=== PATIENT | male | born 1990 | race African-American/Black ===

== ENCOUNTER 2020-04-15 10:40 | Inpatient (IN) | payer OTHER ==
--- NOTE | 2020-04-15 11:11 | BHS.RME ---
Substance Use & Tx History - Substance Use History Heroin Substance amount: 1 bundle Frequency of use: Daily Substance route: Inhalation (ex: sniffing or snorting) Date of Last Use: 04/15/20 Alcohol Substance amount: 1 pints Frequency of use: Less than 3 times per week Substance route: Oral Date of Last Use: 04/13/20 Nicotine Substance amount: 1/2 pack Frequency of use: Daily Substance route: Smoking Date of Last Use: 04/15/20 Physical/Psych/Mental Status - Behavior General Behavior: Decreased activity Eye Contact: Normal - Cooperativeness Cooperativeness: Cooperative - Thinking Thought Processes: Tight, Logical, Goal Directed - Physical Health Problems Is patient presently having any pain?: No Does patient presently have any injuries (include location): No Does patient currently have a fever: No Is patient : No COWS - Scale Resting Pulse: 1= [place] 81-100 Sweatin= No chills or Flushing Restless Observation: 1= Difficult to Sit Still Pupil Size: 1= Pupils >than Normal Bone or Joint Aches: 2= Severe Diffuse Aches Runny Nose/ Eye Tearin= None GI Upset > 30mins: 0= None Tremor Observation: 0= None Yawning Observation: 1= 1-2x During Session Anxiety or Irritability: 1=Feels Anxious/Irritable Goose Flesh Skin: 3=Piloerection COWS Score: 10
--- NOTE | 2020-04-15 12:01 | HP ---
COWS - Scale Resting Pulse: 1= [place] 81-100 Sweatin= No chills or Flushing Restless Observation: 1= Difficult to Sit Still Pupil Size: 1= Pupils >than Normal Bone or Joint Aches: 2= Severe Diffuse Aches Runny Nose/ Eye Tearin= None GI Upset > 30mins: 0= None Tremor Observation: 0= None Yawning Observation: 1= 1-2x During Session Anxiety or Irritability: 1=Feels Anxious/Irritable Goose Flesh Skin: 3=Piloerection COWS Score: 10 CIWA Score - Admission Criteria OASAS Guidelines: Admission for Medically Managed Detox: Requires at least one of the followin. CIWA greater than 12 2. Seizures within the past 24 hours 3. Delirium tremens within the past 24 hours 4. Hallucinations within the past 24 hours 5. Acute intervention needed for co occurring medical disorder 6. Acute intervention needed for co occurring psychiatric disorder 7. Severe withdrawal that cannot be handled at a lower level of care (continued vomiting, continued diarrhea, abnormal vital signs) requiring intravenous medication and/or fluids 8. Admitting History and Physical - Admission History of Present Illness: Chief Complaint: " I want to get my life straight and start working" History of Present Illness: 24 year old male with history of alcohol use disorder and opioid dependence with withdrawal, nicotine dependence He has never been to treatment here. Alcohol: 1 pint vodka 3x/wk started drinking at age 18 and last used 04/13/20 Heroin: 1 bundle IN, started at age 28 and last used 04/15/20 at 9AM. Overdosed 2 months ago and has a narcan kit. Nicotine: 1/2 pack daily, started at age 18 PMH: None Psurg: None Psych: None Patient is homeless and staying in the [facility] No legal problems pending. He meets criteria for heroin detox as he is currently using and has had 4-5 overdoses, last one 2 months ago. History Source: Patient Limitations to Obtaining History: No Limitations - Past Surgical History Past Surgical History: Yes: None - Alcohol/Substance Use Hx Alcohol Use: Yes Number of Drinks Daily: 10 History of Substance Use: reports: Heroin - Social History Usual Living Arrangement: Yes: Alone Do you think of yourself as: Straight/Heterosexual ADL: Independent Occupation: unemployed History of Recent Travel: No Admission ROS BHS - HPI Exam Limitations: No Limitations - Ebola screening Have you traveled outside of the country in the last 21 days: No Have you had contact with anyone from an Ebola affected area: No Have you been sick,other than usual withdrawal symptoms: No Do you have a fever: No - Review of Systems Constitutional: Diaphoresis EENT: reports: No Symptoms Reported Respiratory: reports: No Symptoms reported Cardiac: reports: No Symptoms Reported GI: reports: No Symptoms Reported : reports: No Symptoms Reported Musculoskeletal: reports: No Symptoms Reported Integumentary: reports: No Symptoms Reported Neuro: reports: No Symptoms reported Endocrine: reports: No Symptoms Reported Hematology: reports: No Symptoms Reported Psychiatric: reports: Judgement Intact, Mood/Affect Appropiate, Orientated x3, Agitated, Anxious Other Systems: Reviewed and Negative Patient History - Patient Medical History Hx Anemia: No - Patient Surgical History Past Surgical History: No - PPD History Previous Implant?: Yes Documented Results: Negative w/o proof Implanted On Prior R Admission?: No PPD to be Administered?: Yes - Smoking Cessation Smoking history: Current every day smoker Have you smoked in the past 12 months: Yes Aproximately how many cigarettes per day: 10 Hx Chewing Tobacco Use: No Initiated information on smoking cessation: Yes 'Breaking Loose' booklet given: 04/15/20 - Substances abused Alcohol Substance route: Oral Frequency: 1-3 times last 30 days Amount used: 1 pint vodka Age of first use: 18 Date of last use: 04/13/20 Heroin Substance route: Inhalation Frequency: Daily Amount used: 1 bundle Age of first use: 28 Date of last use: 04/15/[address] [facility] - Physical General Appearance: Yes: No Apparent Distress, Disheveled, Irritable, Sweating, Anxious HEENTM: Yes: EOMI, Hearing grossly Normal, Normal ENT Inspection, Normocephalic, Normal Voice, RICCI, Pharynx Normal, Tm's normal Respiratory: Yes: Chest Non-Tender, Lungs Clear, Normal Breath Sounds, No Respiratory Distress, No Accessory Muscle Use Neck: Yes: No masses,lesions,Nodules, Supple, Trachea in good position Breast: Yes: Within Normal Limits Cardiology: Yes: Regular Rhythm, Regular Rate, S1, S2 Abdominal: Yes: Normal Bowel Sounds, Non Tender, Flat, Soft Genitourinary: Yes: Within Normal Limits Back: Yes: Normal Inspection Musculoskeletal: Yes: full range of Motion, Gait Steady, Pelvis Stable Extremities: Yes: Normal Capillary Refill, Normal Inspection, Normal Range of Motion, Non-Tender Neurological: Yes: distribution center manager II-XII NML intact, Fully Oriented, Alert, Motor Strength 5/5, Normal Mood/Affect, Normal Response Integumentary: Yes: Normal Color, Dry, Warm Lymphatic: Yes: Within Normal Limits - Diagnostic (1) Opioid dependence with withdrawal Current Visit: Yes Status: Acute (2) Nicotine dependence Current Visit: Yes Status: Acute (3) Homeless Current Visit: Yes Status: Acute Cleared for Admission S - Detox or Rehab [facility] Level of Care: Medically Managed Detox Regimen/Protocol: Methadone Claeared for Rehab Admission: No Screened but not Admitted - Documentation of Visit Screened but not Admitted: No Breathalyzer - Breathalyzer Breathalyzer: 0 Urine Drug Screen - Test Device Lot number: [id number] Expiration date: 06/22/21 - Control Is test valid?: Yes - Results Drug screen NEGATIVE: No Urine drug screen results: FEN-Fentanyl, MOP-Opiates Inpatient Rehab Admission - Rehab Decision to Admit Inpatient rehab admission?: No
[2020-04-15] MEDS ORDERED: METHADONE HCL 10 MG TABLET (FOR DETOX USE ONLY) PO ONE (12:09)
[2020-04-15] MEDS ORDERED: IBUPROFEN 400 MG TABLET (FP) PO PRN (12:09)
[2020-04-15] MEDS ORDERED: BISMUTH SUBSALICYLATE 262 MG/15 ML BTL PO PRN (12:09)
[2020-04-15] MEDS ORDERED: MAGNESIUM HYDROX 2400MG/30ML ORAL SUSPENSION 30 ML CUP PO PRN (12:09)
[2020-04-15] MEDS ORDERED: ACETAMINOPHEN 325 MG TABLET (FP) PO PRN ×2 (12:09)
[2020-04-15] MEDS ORDERED: MENTHOL/PHENOL 1 EACH UD MM PRN (12:09)
[2020-04-15] MEDS ORDERED: MAG HYDROX/AL HYDROX/SIMETH 30 ML UNIT-DOSE CUP PO PRN (12:09)
[2020-04-15] MEDS ORDERED: cloNIDine HCL 0.1 MG TABLET PO PRN (12:09)
[2020-04-15] MEDS ORDERED: MAGNESIUM CITRATE 300 ML BOTTLE PO PRN (12:09)
[2020-04-15] MEDS ORDERED: NICOTINE POLACRILEX 2 MG GUM BUC PRN (12:09)
[2020-04-15] MEDS ORDERED: ONDANSETRON *ODT* 4 MG TABLET SL ONE (12:09)
--- NOTE | 2020-04-15 13:35 | EKG ---
Test Reason : Blood Pressure : / mmHG Vent. Rate : 070 BPM Atrial Rate : 070 BPM P-R Int : 180 ms QRS Dur : 084 ms QT Int : 394 ms P-R-T Axes : 045 087 057 degrees QTc Int : 425 ms NORMAL SINUS RHYTHM MODERATE VOLTAGE CRITERIA FOR LVH, MAY BE NORMAL VARIANT BORDERLINE ECG NO PREVIOUS ECGS AVAILABLE Confirmed by MD Levin Edward ([id number]) on 04/15/2020 1:35:21 PM Referred By: Confirmed By:Amilcar Levin MD
[2020-04-15] MEDS ORDERED: TUBERCULIN PPD 5 TU/0.1ML VIAL ID ONE (13:37)
[2020-04-15] MEDS: hydrOXYzine PAMOATE 25 MG CAPSULE (FP) PO SCH ×3 (13:59→22:11)
[2020-04-15] MEDS: PRENATAL VITAMINS W/ FOLIC ACID TABLET (FP) PO SCH (14:00)
[2020-04-15] MEDS: NICOTINE 7 MG/24 HOURS TOPICAL PATCH TD SCH (14:09)
[2020-04-15 18:05] LABS: HEMATOCRIT 38.7 % (35.4-49); MCH 21.8 pg (25.7-33.7); MCHC 30.9 g/dl (32.0-35.9); MEAN CELL VOLUME 70.4 fl (80-96); MEAN PLT VOLUME 10.1 fl (7.5-11.1); PLATELET COUNT 296 K/MM3 (134-434); RDW 14.4 % (11.9-15.9); WHITE BLOOD COUNT 7.6 K/mm3 (4.0-10.0)
[2020-04-15 18:11] LABS: BILIRUBIN,TOTAL 0.4 mg/dL (0.2-1); BLOOD UREA NITROGEN 11.5 mg/dL (7-18); CALCIUM 9.3 mg/dL (8.5-10.1); CREATININE 0.9 mg/dL (0.55-1.3); POTASSIUM 4.6 mmol/L (3.5-5.1); TOT PROT 8.3 g/dl (6.4-8.2)
[2020-04-15] MEDS: MELATONIN 5 MG TABLETS PO SCH (22:11)
[2020-04-15] MEDS: THIAMINE HCL 100 MG TABLET (FP) PO SCH (22:11)
[2020-04-16] MEDS: hydrOXYzine PAMOATE 25 MG CAPSULE (FP) PO SCH ×5 (06:36→22:20)
[2020-04-16] MEDS ORDERED: METHADONE HCL 10 MG TABLET (FOR DETOX USE ONLY) ONE (08:36)
[2020-04-16] MEDS ORDERED: METHADONE HCL 5 MG TABLET (FOR DETOX USE ONLY) ONE (08:37)
[2020-04-16] MEDS ORDERED: METHADONE (DETOX) 20 MG, METHADONE (DETOX) 5 MG PO ONE (10:00)
[2020-04-16] MEDS: PRENATAL VITAMINS W/ FOLIC ACID TABLET (FP) PO SCH (10:10)
[2020-04-16] MEDS: NICOTINE 7 MG/24 HOURS TOPICAL PATCH TD SCH (10:10)
--- NOTE | 2020-04-16 12:04 | PN ---
BHS COWS - Scale Resting Pulse: 0= [place] 80 or Below Sweatin= Chills/Flushing Restless Observation: 0= Sits Still Pupil Size: 0= Normal to Room Light Bone or Joint Aches: 2= Severe Diffuse Aches Runny Nose/ Eye Tearin= None GI Upset > 30mins: 0= None Tremor Observation of Outstretched Hands: 2= Slight Tremor Visible Yawning Observation: 0= None Anxiety or Irritability: 1=Feels Anxious/Irritable Goose Flesh Skin: 0=Smooth Skin COWS Score: 6 BHS Progress Note (SOAP) Subjective: Pt is a 30 y/o male with a hx of MIRZA-heroin, and some alcohol admitted to detox. Objective: 04/16/20 12:39 Vital Signs 04/16/20 04/16/20 06:23 09:04 Temperature 97.8 F 98.2 F Pulse Rate 63 75 Respiratory 18 18 Rate Blood Pressure 148/79 129/85 O2 Sat by Pulse 97 98 Oximetry (%) Laboratory Tests 04/15/20 04/15/20 04/15/20 12:00 12:00 12:00 WBC 7.6 RBC 5.50 Hgb 12.0 Hct 38.7 MCV 70.4 L MCH 21.8 L MCHC 30.9 L RDW 14.4 Plt Count 296 MPV 10.1 Sodium 141 Potassium 4.6 Chloride 106 Carbon Dioxide 30 Anion Gap 5 L BUN 11.5 Creatinine 0.9 Est GFR (CKD-EPI)AfAm 132.37 Est GFR (CKD-EPI)NonAf 114.21 Random Glucose 75 Calcium 9.3 Total Bilirubin 0.4 AST 19 ALT 33 Alkaline Phosphatase 84 Total Protein 8.3 H Albumin 4.0 Syphilis Serology Non-reactive COVID-19 (CASANDRA) HIV Ag/Ab Combo Qual 04/15/20 04/15/20 12:00 12:00 WBC RBC Hgb Hct MCV MCH MCHC RDW Plt Count MPV Sodium Potassium Chloride Carbon Dioxide Anion Gap BUN Creatinine Est GFR (CKD-EPI)AfAm Est GFR (CKD-EPI)NonAf Random Glucose Calcium Total Bilirubin AST ALT Alkaline Phosphatase Total Protein Albumin Syphilis Serology COVID-19 (CASANDRA) Not detected HIV Ag/Ab Combo Qual Negative covid-19 not detected Assessment: 04/16/20 12:45 withdrawal sx Plan: cont detox increase po fluids maintain safety
[2020-04-16] MEDS: MELATONIN 5 MG TABLETS PO SCH (22:19)
[2020-04-16] MEDS: THIAMINE HCL 100 MG TABLET (FP) PO SCH (22:19)
[2020-04-16] MEDS: METHOCARBAMOL 500 MG TABLET PO PRN (22:20)
[2020-04-16 22:48] LABS: PH,URINE 6.5 (5.0-8.0); URINE APPEARANCE CLEAR; URINE BILIRUBIN NEGATIVE (NEGATIVE); URINE COLOR YELLOW; URINE GLUCOSE (UA) NEGATIVE (NEGATIVE); URINE KETONE TRACE (NEGATIVE); URINE LEUK ESTERASE NEGATIVE (NEGATIVE); URINE NITRITE NEGATIVE (NEGATIVE); URINE PROTEIN NEGATIVE (NEGATIVE)
[2020-04-17] MEDS: hydrOXYzine PAMOATE 25 MG CAPSULE (FP) PO SCH ×5 (07:11→22:10)
[2020-04-17] MEDS ORDERED: METHADONE HCL 10 MG TABLET (FOR DETOX USE ONLY) PO ONE (10:00)
[2020-04-17] MEDS: NICOTINE 7 MG/24 HOURS TOPICAL PATCH TD SCH (10:05)
[2020-04-17] MEDS: PRENATAL VITAMINS W/ FOLIC ACID TABLET (FP) PO SCH (10:05)
--- NOTE | 2020-04-17 10:10 | PN ---
BHS COWS - Scale Resting Pulse: 0= [place] 80 or Below Sweatin= Chills/Flushing Restless Observation: 0= Sits Still Pupil Size: 0= Normal to Room Light Bone or Joint Aches: 2= Severe Diffuse Aches Runny Nose/ Eye Tearin= None GI Upset > 30mins: 0= None Tremor Observation of Outstretched Hands: 1= Tremor [place], Not Seen Yawning Observation: 0= None Anxiety or Irritability: 1=Feels Anxious/Irritable Goose Flesh Skin: 0=Smooth Skin COWS Score: 5 BHS Progress Note (SOAP) Subjective: slight anxiety sweats reports detox proceeding well Objective: 04/18/20 16:46 Vital Signs (72 hours) 04/17/20 04/17/20 04/17/20 05:00 06:40 09:10 Temperature 97.8 F 98.2 F Pulse Rate 66 79 Respiratory 16 18 Rate Blood Pressure 127/83 134/86 O2 Sat by Pulse 98 98 Oximetry (%) 04/17/20 13:02 Temperature 98.4 F Pulse Rate 55 L Respiratory 16 Rate Blood Pressure 128/88 O2 Sat by Pulse 98 Oximetry (%) Laboratory Tests 04/15/20 04/15/20 04/15/20 12:00 12:00 12:00 WBC 7.6 RBC 5.50 Hgb 12.0 Hct 38.7 MCV 70.4 L MCH 21.8 L MCHC 30.9 L RDW 14.4 Plt Count 296 MPV 10.1 Sodium 141 Potassium 4.6 Chloride 106 Carbon Dioxide 30 Anion Gap 5 L BUN 11.5 Creatinine 0.9 Est GFR (CKD-EPI)AfAm 132.37 Est GFR (CKD-EPI)NonAf 114.21 Random Glucose 75 Calcium 9.3 Total Bilirubin 0.4 AST 19 ALT 33 Alkaline Phosphatase 84 Total Protein 8.3 H Albumin 4.0 Urine Color Urine Appearance Urine pH Ur Specific [place] Urine Protein Urine Glucose (UA) Urine Ketones Urine Blood Urine Nitrite Urine Bilirubin Urine Urobilinogen Ur Leukocyte Esterase Syphilis Serology Non-reactive COVID-19 (CASANDRA) HIV Ag/Ab Combo Qual 04/15/20 04/15/20 04/16/20 12:00 12:00 22:40 WBC RBC Hgb Hct MCV MCH MCHC RDW Plt Count MPV Sodium Potassium Chloride Carbon Dioxide Anion Gap BUN Creatinine Est GFR (CKD-EPI)AfAm Est GFR (CKD-EPI)NonAf Random Glucose Calcium Total Bilirubin AST ALT Alkaline Phosphatase Total Protein Albumin Urine Color Yellow Urine Appearance Clear Urine pH 6.5 Ur Specific [place] 1.025 Urine Protein Negative Urine Glucose (UA) Negative Urine Ketones Trace H Urine Blood Negative Urine Nitrite Negative Urine Bilirubin Negative Urine Urobilinogen 1.0 Ur Leukocyte Esterase Negative Syphilis Serology COVID-19 (CASANDRA) Not detected HIV Ag/Ab Combo Qual Negative covid-19 not detected Assessment: 04/18/20 16:45 mild w/s Plan: cont detox increase po fluids maintain safety
[2020-04-17] MEDS: METHOCARBAMOL 500 MG TABLET PO PRN (22:10)
[2020-04-17] MEDS: THIAMINE HCL 100 MG TABLET (FP) PO SCH (22:10)
[2020-04-17] MEDS: MELATONIN 5 MG TABLETS PO SCH (22:10)
[2020-04-18] MEDS: hydrOXYzine PAMOATE 25 MG CAPSULE (FP) PO SCH ×5 (06:37→22:24)
[2020-04-18] MEDS ORDERED: METHADONE HCL 10 MG TABLET (FOR DETOX USE ONLY) ONE (08:42)
[2020-04-18] MEDS ORDERED: METHADONE HCL 5 MG TABLET (FOR DETOX USE ONLY) ONE (08:42)
[2020-04-18] MEDS ORDERED: METHADONE (DETOX) 10 MG, METHADONE (DETOX) 5 MG PO ONE (10:00)
[2020-04-18] MEDS: PRENATAL VITAMINS W/ FOLIC ACID TABLET (FP) PO SCH (10:21)
[2020-04-18] MEDS: NICOTINE 7 MG/24 HOURS TOPICAL PATCH TD SCH (10:21)
--- NOTE | 2020-04-18 13:17 | PN ---
S COWS - Scale Resting Pulse: 0= [place] 80 or Below Sweatin= No chills or Flushing Restless Observation: 0= Sits Still Pupil Size: 0= Normal to Room Light Bone or Joint Aches: 2= Severe Diffuse Aches Runny Nose/ Eye Tearin= None GI Upset > 30mins: 0= None Tremor Observation of Outstretched Hands: 0= None Yawning Observation: 0= None Anxiety or Irritability: 2=Irritable/Anxious Goose Flesh Skin: 0=Smooth Skin COWS Score: 4 BHS Progress Note (SOAP) Subjective: c/o of mild withdrawal symptoms. Objective: 04/18/20 13:15 Vital Signs 04/18/20 04/18/20 07:00 09:34 Temperature 97.7 F 98.1 F Pulse Rate 61 71 Respiratory 18 18 Rate Blood Pressure 129/79 142/76 O2 Sat by Pulse 98 98 Oximetry (%) Laboratory Last Values WBC 7.6 K/mm3 (4.0-10.0) 04/15/20 12:00 RBC 5.50 M/mm3 (4.00-5.60) 04/15/20 12:00 Hgb 12.0 GM/dL (11.7-16.9) 04/15/20 12:00 Hct 38.7 % (35.4-49) 04/15/20 12:00 MCV 70.4 fl (80-96) L 04/15/20 12:00 MCH 21.8 pg (25.7-33.7) L 04/15/20 12:00 MCHC 30.9 g/dl (32.0-35.9) L 04/15/20 12:00 RDW 14.4 % (11.9-15.9) 04/15/20 12:00 Plt Count 296 K/MM3 (134-434) 04/15/20 12:00 MPV 10.1 fl (7.5-11.1) 04/15/20 12:00 Sodium 141 mmol/L (136-145) 04/15/20 12:00 Potassium 4.6 mmol/L (3.5-5.1) 04/15/20 12:00 Chloride 106 mmol/L (98-107) 04/15/20 12:00 Carbon Dioxide 30 mmol/L (21-32) 04/15/20 12:00 Anion Gap 5 MMOL/L (8-16) L 04/15/20 12:00 BUN 11.5 mg/dL (7-18) 04/15/20 12:00 Creatinine 0.9 mg/dL (0.55-1.3) 04/15/20 12:00 Est GFR (CKD-EPI)AfAm 132.37 04/15/20 12:00 Est GFR (CKD-EPI)NonAf 114.21 04/15/20 12:00 Random Glucose 75 mg/dL (74-106) 04/15/20 12:00 Calcium 9.3 mg/dL (8.5-10.1) 04/15/20 12:00 Total Bilirubin 0.4 mg/dL (0.2-1) 04/15/20 12:00 AST 19 U/L (15-37) 04/15/20 12:00 ALT 33 U/L (13-61) 04/15/20 12:00 Alkaline Phosphatase 84 U/L (45-117) 04/15/20 12:00 Total Protein 8.3 g/dl (6.4-8.2) H 04/15/20 12:00 Albumin 4.0 g/dl (3.4-5.0) 04/15/20 12:00 Urine Color Yellow 04/16/20 22:40 Urine Appearance Clear 04/16/20 22:40 Urine pH 6.5 (5.0-8.0) 04/16/20 22:40 Ur Specific [place] 1.025 (1.010-1.035) 04/16/20 22:40 Urine Protein Negative (NEGATIVE) 04/16/20 22:40 Urine Glucose (UA) Negative (NEGATIVE) 04/16/20 22:40 Urine Ketones Trace (NEGATIVE) H 04/16/20 22:40 Urine Blood Negative (NEGATIVE) 04/16/20 22:40 Urine Nitrite Negative (NEGATIVE) 04/16/20 22:40 Urine Bilirubin Negative (NEGATIVE) 04/16/20 22:40 Urine Urobilinogen 1.0 mg/dL (0.2-1.0) 04/16/20 22:40 Ur Leukocyte Esterase Negative (NEGATIVE) 04/16/20 22:40 Syphilis Serology Non-reactive (NONREACTIVE) 04/15/20 12:00 COVID-19 (CASANDRA) Not detected (Not Detected) 04/15/20 12:00 HIV Ag/Ab Combo Qual Negative (NEGATIVE) 04/15/20 12:00 Labs noted. Assessment: AOX3, in no acute respiratory distress. Full ROM, ambulating in the unit. Mild withdrawal symptoms. Plan: continue detox.
[2020-04-18] MEDS: THIAMINE HCL 100 MG TABLET (FP) PO SCH (22:24)
[2020-04-18] MEDS: METHOCARBAMOL 500 MG TABLET PO PRN (22:24)
[2020-04-18] MEDS: MELATONIN 5 MG TABLETS PO SCH (22:24)
[2020-04-19] MEDS: hydrOXYzine PAMOATE 25 MG CAPSULE (FP) PO SCH ×5 (08:07→22:39)
[2020-04-19] MEDS ORDERED: METHADONE HCL 10 MG TABLET (FOR DETOX USE ONLY) PO ONE (10:00)
[2020-04-19] MEDS: NICOTINE 7 MG/24 HOURS TOPICAL PATCH TD SCH (10:43)
[2020-04-19] MEDS: PRENATAL VITAMINS W/ FOLIC ACID TABLET (FP) PO SCH (10:44)
--- NOTE | 2020-04-19 14:17 | PN ---
BHS COWS - Scale Resting Pulse: 0= [place] 80 or Below Sweatin= No chills or Flushing Restless Observation: 0= Sits Still Pupil Size: 0= Normal to Room Light Bone or Joint Aches: 0= None Runny Nose/ Eye Tearin= None GI Upset > 30mins: 0= None Tremor Observation of Outstretched Hands: 1= Tremor [place], Not Seen Yawning Observation: 0= None Anxiety or Irritability: 1=Feels Anxious/Irritable Goose Flesh Skin: 0=Smooth Skin COWS Score: 2 BHS Progress Note (SOAP) Subjective: 30 years old male admitted on 04/15/20 for opiate withdrawal sx management treating with methadone detox regiment feeling better today watching tv in day room with peers mild body aches and joints pain Objective: 04/19/20 14:16 Vital Signs - 24 hr 04/18/20 04/18/20 04/19/20 17:10 20:45 00:30 Temperature 98 F 98.6 F Pulse Rate 72 65 Respiratory 16 18 18 Rate Blood Pressure 121/73 133/74 O2 Sat by Pulse 96 Oximetry (%) 04/19/20 04/19/20 04/19/20 03:30 07:00 11:14 Temperature 98.1 F 98.0 F Pulse Rate 56 L 74 Respiratory 18 16 18 Rate Blood Pressure 112/62 131/76 O2 Sat by Pulse 96 Oximetry (%) 04/19/20 14:15 Temperature 98.2 F Pulse Rate 79 Respiratory 20 Rate Blood Pressure 111/73 O2 Sat by Pulse Oximetry (%) Laboratory Tests 04/15/20 04/15/20 04/15/20 12:00 12:00 12:00 WBC 7.6 RBC 5.50 Hgb 12.0 Hct 38.7 MCV 70.4 L MCH 21.8 L MCHC 30.9 L RDW 14.4 Plt Count 296 MPV 10.1 Sodium 141 Potassium 4.6 Chloride 106 Carbon Dioxide 30 Anion Gap 5 L BUN 11.5 Creatinine 0.9 Est GFR (CKD-EPI)AfAm 132.37 Est GFR (CKD-EPI)NonAf 114.21 Random Glucose 75 Calcium 9.3 Total Bilirubin 0.4 AST 19 ALT 33 Alkaline Phosphatase 84 Total Protein 8.3 H Albumin 4.0 Urine Color Urine Appearance Urine pH Ur Specific [place] Urine Protein Urine Glucose (UA) Urine Ketones Urine Blood Urine Nitrite Urine Bilirubin Urine Urobilinogen Ur Leukocyte Esterase Syphilis Serology Non-reactive COVID-19 (CASANDRA) HIV Ag/Ab Combo Qual 04/15/20 04/15/20 04/16/20 12:00 12:00 22:40 WBC RBC Hgb Hct MCV MCH MCHC RDW Plt Count MPV Sodium Potassium Chloride Carbon Dioxide Anion Gap BUN Creatinine Est GFR (CKD-EPI)AfAm Est GFR (CKD-EPI)NonAf Random Glucose Calcium Total Bilirubin AST ALT Alkaline Phosphatase Total Protein Albumin Urine Color Yellow Urine Appearance Clear Urine pH 6.5 Ur Specific [place] 1.025 Urine Protein Negative Urine Glucose (UA) Negative Urine Ketones Trace H Urine Blood Negative Urine Nitrite Negative Urine Bilirubin Negative Urine Urobilinogen 1.0 Ur Leukocyte Esterase Negative Syphilis Serology COVID-19 (CASANDRA) Not detected HIV Ag/Ab Combo Qual Negative Assessment: 04/19/20 14:17 opiate withdrawal Plan: methadone regiment
[2020-04-19] MEDS: THIAMINE HCL 100 MG TABLET (FP) PO SCH (22:39)
[2020-04-19] MEDS: MELATONIN 5 MG TABLETS PO SCH (22:39)
[2020-04-19] MEDS: METHOCARBAMOL 500 MG TABLET PO PRN (22:39)
[2020-04-20] MEDS ORDERED: METHADONE HCL 5 MG TABLET (FOR DETOX USE ONLY) PO ONE (06:00)
[2020-04-20] MEDS: hydrOXYzine PAMOATE 25 MG CAPSULE (FP) PO SCH (06:38)
[2020-04-20 07:11] VITALS: BP 111/73; PULSE 61; TEMP 97.3
--- NOTE | 2020-04-20 09:57 | DS ---
[facility] Detox Discharge Summary Admission Date: 04/15/20 Discharge Date: 04/20/20 - History Present History: Alcohol Dependence, Opioid Dependence Pertinent Past History: Denies - Physical Exam Results Vital Signs: Vital Signs Temperature 97.3 F L 04/20/20 06:40 Pulse Rate 61 04/20/20 06:40 Respiratory Rate 16 04/20/20 06:40 Blood Pressure 111/73 04/20/20 06:40 O2 Sat by Pulse Oximetry (%) 100 04/20/20 06:40 Alert o x 3 nad oob ambulating with steady gait cardiac:s1 s2,rrr lungs:cta,cheryl. abdomen:soft,+bs,nt,nd extremities:no edema,skin intact Pertinent Admission Physical Exam Findings: Laboratory Tests 04/15/20 04/15/20 04/15/20 12:00 12:00 12:00 WBC 7.6 RBC 5.50 Hgb 12.0 Hct 38.7 MCV 70.4 L MCH 21.8 L MCHC 30.9 L RDW 14.4 Plt Count 296 MPV 10.1 Sodium 141 Potassium 4.6 Chloride 106 Carbon Dioxide 30 Anion Gap 5 L BUN 11.5 Creatinine 0.9 Est GFR (CKD-EPI)AfAm 132.37 Est GFR (CKD-EPI)NonAf 114.21 Random Glucose 75 Calcium 9.3 Total Bilirubin 0.4 AST 19 ALT 33 Alkaline Phosphatase 84 Total Protein 8.3 H Albumin 4.0 Urine Color Urine Appearance Urine pH Ur Specific [place] Urine Protein Urine Glucose (UA) Urine Ketones Urine Blood Urine Nitrite Urine Bilirubin Urine Urobilinogen Ur Leukocyte Esterase Syphilis Serology Non-reactive COVID-19 (CASANDRA) HIV Ag/Ab Combo Qual 04/15/20 04/15/20 04/16/20 12:00 12:00 22:40 WBC RBC Hgb Hct MCV MCH MCHC RDW Plt Count MPV Sodium Potassium Chloride Carbon Dioxide Anion Gap BUN Creatinine Est GFR (CKD-EPI)AfAm Est GFR (CKD-EPI)NonAf Random Glucose Calcium Total Bilirubin AST ALT Alkaline Phosphatase Total Protein Albumin Urine Color Yellow Urine Appearance Clear Urine pH 6.5 Ur Specific [place] 1.025 Urine Protein Negative Urine Glucose (UA) Negative Urine Ketones Trace H Urine Blood Negative Urine Nitrite Negative Urine Bilirubin Negative Urine Urobilinogen 1.0 Ur Leukocyte Esterase Negative Syphilis Serology COVID-19 (CASANDRA) Not detected HIV Ag/Ab Combo Qual Negative - Treatment Hospital Course: Detox Protocol Followed, Detoxed Safely, Responded well, Discharged Condition Good, Rehab Referral Accepted Patient has Accepted a Rehab Referral to: referred to [facility], [facility] and back to [facility]. - Medication Discharge Medications: Ambulatory Orders NK [No Known Home Medication] 04/15/20 - Diagnosis (1) Homeless Current Visit: Yes Status: Acute (2) Nicotine dependence Current Visit: Yes Status: Acute Qualifiers: Nicotine product type: cigarettes Substance use status: in withdrawal Qualified Code(s): F17.213 - Nicotine dependence, cigarettes, with withdrawal (3) Opioid dependence with withdrawal Current Visit: Yes Status: Acute - AMA Did Patient Leave Against Medical Advice: No
== END 2020-04-20 09:49 | disposition home or self-care (01) | DRG 773 ==
LOC: YASAS 10:40 → Y5N DETOX 12:30
PROVIDERS: ADMIT Allergy & Immunology; ATTEND Allergy & Immunology
PROC: HZ2ZZZZ Detoxification Services for Substance Abuse Treatment (ICD-10-PCS; principal; 2020-04-15)
DX: F11.23 Opioid dependence with withdrawal (principal); F17.213 Nicotine dependence, cigarettes, with withdrawal; Z59.0 Homelessness
CPT/HCPCS: 36415; 80053; 81003; 85027; 86780; 87389; 93005; 93010; Q0162; U0003